=== PATIENT | male | born 1965 | race Caucasian/White ===

== ENCOUNTER 2018-11-21 21:11 | Emergency (ER) | payer OTHER ==
[~2018-11-21] VITALS: Ht 177.8 cm; Wt 67.4 kg
[2018-11-21 22:28] VITALS: BP 123/69
== END 2018-11-21 22:31 | disposition home or self-care (01) ==
LOC: ED 22:03
DX: G89.29 Other chronic pain (principal); M54.2 Cervicalgia; I10 Essential (primary) hypertension
CPT/HCPCS: 72050; 99283

== ENCOUNTER 2020-04-05 12:59 | Emergency (ER) | payer MEDICAID, OTHER ==
[~2020-04-05] VITALS: Ht 177.8 cm; Wt 68.6 kg
[2020-04-05] MEDS ORDERED: BENZONATATE 100 MG CAPSULE ONE (13:52)
[2020-04-05] MEDS ORDERED: ACETAMINOPHEN 325 MG TABLET ONE (13:53)
[2020-04-05] MEDS ORDERED: BENZONATATE 100 MG CAPSULE PO ONE (14:00)
[2020-04-05] MEDS ORDERED: ACETAMINOPHEN 325 MG TABLET PO ONE (14:00)
--- NOTE | 2020-04-05 14:00 | NUR ---
assumed care of pt. pt here for productive cough for a few days. pt reports that he is having green colored sputum. pt is in no resp. distress an is not coughing at this time. denies CP. pt is A&O x4. no family at bedside
[2020-04-05 16:54] VITALS: BP 129/85
== END 2020-04-05 16:59 | disposition home or self-care (01) ==
LOC: ED 13:47
DX: J20.8 Acute bronchitis due to other specified organisms (principal); I10 Essential (primary) hypertension; R05 Cough; R09.81 Nasal congestion; F17.210 Nicotine dependence, cigarettes, uncomplicated
CPT/HCPCS: 71045; 99406

== ENCOUNTER 2020-12-27 00:35 | Emergency (ER) | payer MEDICAID ==
[~2020-12-27] VITALS: Ht 177.8 cm; Wt 67.5 kg
[2020-12-27 00:36] VITALS: BP 132/99
== END 2020-12-27 01:43 | disposition home or self-care (01) ==
LOC: ED 01:38
DX: B35.3 Tinea pedis (principal); F17.210 Nicotine dependence, cigarettes, uncomplicated; I10 Essential (primary) hypertension
CPT/HCPCS: 99406